=== PATIENT | female | born 1945 | race Caucasian/White ===

== ENCOUNTER 2024-07-11 07:10 | Day surgery (SDC) | payer OTHER, MEDICAID ==
[~2024-07-11] VITALS: Ht 152.4 cm; Wt 93.0 kg
[2024-07-11] MEDS ORDERED: MIDAZOLAM HCL 5 MG/5 ML VIAL ONE (07:40)
[2024-07-11] MEDS ORDERED: fentaNYL CITRATE/PF 100 MCG/2 ML AMP ONE (07:40)
[2024-07-11 08:38] VITALS: O2SAT 97
[2024-07-11 18:09] VITALS: BP_SYST 109; PULSE 62; RESP 18
== END 2024-07-11 10:36 | disposition home or self-care (01) ==
LOC: SDS 07:10 → SMU 07:16 → SDS 10:36
PROVIDERS: ATTEND Internal Medicine
DX: D50.9 Iron deficiency anemia, unspecified (principal); K64.8 Other hemorrhoids; K64.4 Residual hemorrhoidal skin tags; I10 Essential (primary) hypertension; E11.9 Type 2 diabetes mellitus without complications; J45.909 Unspecified asthma, uncomplicated; I25.2 Old myocardial infarction; Z79.82 Long term (current) use of aspirin; Z79.84 Long term (current) use of oral hypoglycemic drugs; Z79.899 Other long term (current) drug therapy; Z88.8 Allergy status to other drugs, medicaments and biological substances; Z87.891 Personal history of nicotine dependence
CPT/HCPCS: 45378; 43235; 99152; 82948; 99153; G0378; J2250; J3010